=== PATIENT | male | born 1990 | race Caucasian/White ===

== ENCOUNTER 2017-05-13 09:29 | Emergency (ER) | payer SELFPAY ==
[~2017-05-13] VITALS: Ht 175.3 cm; Wt 64.9 kg
[2017-05-13] MEDS ORDERED: SODIUM CHLORIDE 0.9% 1,000 ML IV ONE (11:28)
[2017-05-13] MEDS ORDERED: LIDOCAINE VISCOUS 2% 15ML UD MT ONE (11:30)
[2017-05-13] MEDS ORDERED: KETOROLAC TROMETH 30 MG/ML 1ML VIAL IV ONE (11:45)
[2017-05-13] MEDS ORDERED: ONDANSETRON HCL 4 MG/2 ML VIAL IV ONE (11:45)
[2017-05-13] MEDS ORDERED: ONDANSETRON HCL 4 MG/2 ML VIAL ONE (11:50)
[2017-05-13] MEDS ORDERED: KETOROLAC TROMETH 30 MG/ML 1ML VIAL ONE (11:50)
[2017-05-13] MEDS ORDERED: LIDOCAINE VISCOUS 2% 15ML UD ONE (11:51)
[2017-05-13 12:30] VITALS: BP 118/58
== END 2017-05-13 12:52 | disposition home or self-care (01) ==
LOC: ER 09:29
DX: H66.93 Otitis media, unspecified, bilateral (principal)
CPT/HCPCS: 96361; 96374; 96375; 99284; J1885; J2405; J7030

== ENCOUNTER 2017-05-14 18:10 | Emergency (ER) | payer MEDICAID ==
[~2017-05-14] VITALS: Ht 175.3 cm; Wt 64.9 kg
[2017-05-14 21:58] VITALS: BP 125/62
[2017-05-14] MEDS ORDERED: IBUPROFEN 800 MG TAB PO ONE (22:45)
== END 2017-05-14 22:37 | disposition home or self-care (01) ==
LOC: ER 18:10
DX: H92.01 Otalgia, right ear (principal); R05 Cough; Z76.0 Encounter for issue of repeat prescription; Z88.0 Allergy status to penicillin